=== PATIENT | female | born 1950 | race Two or more races ===

== ENCOUNTER 2021-02-06 19:04 | Inpatient (IN) | payer MEDICARE, MEDICAID ==
[~2021-02-06] VITALS: Ht 154.9 cm; Wt 93.0 kg
[2021-02-06 19:46] LABS: Basophils # (auto) 0.1 10 ^3/uL (0-0.2); Basophils % (auto) 0.6 % (0.0-2.0); Eosinophils # (auto) 0.2 10 ^3/uL (0-0.8); Eosinophils % (auto) 2.6 % (0.0-7.0); Hematocrit 47.9 % (36.0-46.0); Hemoglobin 16.2 g/dL (12.2-16.2); Lymphocytes # (auto) 2.5 10 ^3/uL (0.4-5.4); Lymphocytes % (auto) 28.6 % (10.0-50.0); Mean Corpuscular Hemoglobin 30.8 pg (28.0-32.0); Mean Corpuscular Hgb Conc. 33.8 g/dL (32.0-36.0); Mean Corpuscular Volume 91.1 fL (80.0-100.0); Monocytes # (auto) 0.7 10 ^3/uL (0-1.3); Monocytes % (auto) 8.2 % (0.0-12.0); Neutrophils # (auto) 5.3 10 ^3/uL (1.6-8.6); Nucleated Red Blood Cells % 0.1 %; Red Blood Cells 5.25 10^6/uL (4.0-5.20); Red Cell Distribution Width 12.8 % (11.8-14.3); White Blood Cell 8.9 10^3/uL (4.4-10.8)
[2021-02-06 20:05] LABS: INR 1.04 (0.9-1.15); Partial Thromboplastin Time 26.8 sec (23.6-33.0)
[2021-02-06 20:14] LABS: Albumin 3.9 g/dL (3.4-5.0); Calcium 9.2 mg/dL (8.5-10.1); Magnesium 2.2 mg/dL (1.6-2.6); Potassium 3.8 mmol/L (3.5-5.1)
[2021-02-06 20:18] LABS: Bilirubin, Total 0.5 mg/dL (0.2-1.0); Total Protein 8.4 g/dL (6.4-8.2)
[2021-02-06] MEDS ORDERED: ASPirin 325 MG TAB PO ONE (20:45)
[2021-02-06 21:30] LABS: Urine Bacteria FEW /hpf (None Seen); Urine Blood Negative /uL (Negative); Urine Specific Gravity 1.003 (1.001-1.035); Urine WBC 1 /hpf (0 - 5)
[2021-02-06] MEDS: ENOXAPARIN SOD 40 MG/0.4 ML SYRINGE SC SCH (22:30)
[2021-02-06] MEDS ORDERED: ONDANSETRON HCL 4 MG/2 ML VIAL IV PRN (22:30)
[2021-02-06] MEDS ORDERED: ACETAMINOPHEN 325 MG TAB PO PRN (22:30)
[2021-02-06] MEDS ORDERED: cloNIDine HCL 0.1 MG TAB PO PRN (22:30)
[2021-02-06] MEDS ORDERED: ATORVASTATIN 20 MG TAB PO ONE (22:30)
[2021-02-07 00:58] VITALS: BP 148/106
[2021-02-07] MEDS ORDERED: PNEUMOCOCCAL VACC POLYS 25 MCG/0.5 ML VIAL IM ONE (02:30)
[2021-02-07] MEDS ORDERED: INFLUENZA QUAD 2021-2022 0.5 ML SYRG IM ONE (02:30)
[2021-02-07 05:30] VITALS: BP_SYST 115; BP_SYST 156; BP_DIAS 79; BP_DIAS 98
[2021-02-07] MEDS ORDERED: CHOL20007 PO (06:56)
[2021-02-07] MEDS ORDERED: MAGN400T40 PO (06:56)
[2021-02-07 07:20] LABS: Basophils # (auto) 0 10 ^3/uL (0-0.2); Basophils % (auto) 0.5 % (0.0-2.0); Eosinophils # (auto) 0.3 10 ^3/uL (0-0.8); Eosinophils % (auto) 4.1 % (0.0-7.0); Hematocrit 42.7 % (36.0-46.0); Hemoglobin 15.1 g/dL (12.2-16.2); Lymphocytes % (auto) 36.7 % (10.0-50.0); Mean Corpuscular Hgb Conc. 35.3 g/dL (32.0-36.0); Mean Corpuscular Volume 90.8 fL (80.0-100.0); Monocytes # (auto) 0.9 10 ^3/uL (0-1.3); Monocytes % (auto) 11.3 % (0.0-12.0); Neutrophils # (auto) 3.9 10 ^3/uL (1.6-8.6); Neutrophils % (auto) 47.4 % (37.0-80.0); Nucleated Red Blood Cells % 0.3 %; Red Cell Distribution Width 12.9 % (11.8-14.3); White Blood Cell 8.1 10^3/uL (4.4-10.8)
[2021-02-07 07:40] LABS: Calcium 8.8 mg/dL (8.5-10.1); Potassium 4.3 mmol/L (3.5-5.1)
[2021-02-07 07:44] LABS: BUN/Creatinine Ratio 16.3
[2021-02-07 09:00] VITALS: BP 144/86
[2021-02-07] MEDS ORDERED: ASPirin 81 mg TAB PO SCH (10:00)
[2021-02-07] MEDS: HYDROcodone-ACET 5/325MG TAB PO PRN (10:25)
[2021-02-07] MEDS: amLODIPine BESYLATE 5 MG TAB PO SCH (10:26)
[2021-02-07] MEDS: PANTOPRAZOLE 40 MG TAB PO SCH (10:26)
[2021-02-07] MEDS: ENOXAPARIN SOD 40 MG/0.4 ML SYRINGE SC SCH (10:27)
[2021-02-07 13:00] VITALS: BP 139/81
[2021-02-07 16:54] VITALS: BP 121/69
[2021-02-07 22:00] VITALS: BP 120/77
[2021-02-07] MEDS: TEMAZEPAM 15 MG CAP PO PRN (22:14)
[2021-02-07] MEDS: ATORVASTATIN 20 MG TAB PO SCH (22:14)
[2021-02-08 05:00] VITALS: BP 106/74
[2021-02-08 06:25] LABS: Cholesterol 109 mg/dL (< 200); HDL Cholesterol 50 mg/dL (40-59); LDL Cholesterol 41 mg/dL (< 100); Triglycerides 104 mg/dL (< 150)
[2021-02-08 09:00] VITALS: BP 101/66
[2021-02-08] MEDS: amLODIPine BESYLATE 5 MG TAB PO SCH (09:19)
[2021-02-08] MEDS: ASPirin 81 mg TAB PO SCH (09:19)
[2021-02-08] MEDS: ENOXAPARIN SOD 40 MG/0.4 ML SYRINGE SC SCH (09:20)
[2021-02-08] MEDS: HYDROcodone-ACET 5/325MG TAB PO PRN ×2 (09:20→18:03)
[2021-02-08] MEDS: PANTOPRAZOLE 40 MG TAB PO SCH (09:20)
[2021-02-08] MEDS ORDERED: AML5T PO (11:06)
[2021-02-08] MEDS ORDERED: ASPI-378 PO (11:06)
[2021-02-08 13:00] VITALS: BP 113/71
[2021-02-08 17:00] VITALS: BP 102/59
[2021-02-08] MEDS: ATORVASTATIN 20 MG TAB PO SCH (21:06)
[2021-02-08] MEDS: TEMAZEPAM 15 MG CAP PO PRN (21:06)
[2021-02-08 22:00] VITALS: BP 132/81
[2021-02-09 05:00] VITALS: BP 86/50
[2021-02-09 09:00] VITALS: BP 101/64
[2021-02-09] MEDS: ASPirin 81 mg TAB PO SCH (09:59)
[2021-02-09] MEDS: amLODIPine BESYLATE 5 MG TAB PO SCH (10:00)
[2021-02-09] MEDS: PANTOPRAZOLE 40 MG TAB PO SCH (10:00)
[2021-02-09] MEDS: ENOXAPARIN SOD 40 MG/0.4 ML SYRINGE SC SCH (10:00)
[2021-02-09 11:06] VITALS: BP 101/64
[2021-02-09] MEDS ORDERED: INFLUENZA QUAD 2021-2022 0.5 ML SYRG IM ONE (11:35)
[2021-02-09 13:00] VITALS: BP 99/64
== END 2021-02-09 14:08 | disposition home or self-care (01) | DRG 47 ==
LOC: ER 19:06 → OVERFLOW 22:30 → WEST WING 23:39
PROVIDERS: ADMIT Nurse Practitioner; ATTEND Internal Medicine
DX: G45.9 Transient cerebral ischemic attack, unspecified (principal); E66.9 Obesity, unspecified; I10 Essential (primary) hypertension; E78.5 Hyperlipidemia, unspecified; F32.A Depression, unspecified; F41.9 Anxiety disorder, unspecified; Z20.822 Contact with and (suspected) exposure to COVID-19; F45.9 Somatoform disorder, unspecified; F17.210 Nicotine dependence, cigarettes, uncomplicated; F20.9 Schizophrenia, unspecified; Z82.3 Family history of stroke; Z82.49 Family history of ischemic heart disease and other diseases of the circulatory system; Z83.3 Family history of diabetes mellitus; Z71.6 Tobacco abuse counseling; Z68.34 Body mass index [BMI] 34.0-34.9, adult
CPT/HCPCS: 36415; 70450; 70551; 71045; 80048; 80053; 80061; 81001; 82306; 82962; 83735; 83880; 84443; 84484; 85025; 85610; 85730; 87426; 90686; 93005; 93306; 93886; 97163; G0378

== ENCOUNTER → 2021-11-26 | Outpatient (CLI) | payer MEDICARE, MEDICAID ==
[~2021-11-26] MED LIST: AML5T PO; CHOL20007 PO; MAGN400T40 PO
[2021-11-26 10:26] LABS: Basophils # (auto) 0 10 ^3/uL (0-0.2); Basophils % (auto) 0.3 % (0.0-2.0); Eosinophils # (auto) 0 10 ^3/uL (0-0.8); Eosinophils % (auto) 0.1 % (0.0-7.0); Hematocrit 45.2 % (36.0-46.0); Hemoglobin 15.3 g/dL (12.2-16.2); Lymphocytes # (auto) 1.5 10 ^3/uL (0.4-5.4); Lymphocytes % (auto) 19.6 % (10.0-50.0); Mean Corpuscular Hemoglobin 30.3 pg (28.0-32.0); Mean Corpuscular Hgb Conc. 33.8 g/dL (32.0-36.0); Mean Corpuscular Volume 89.6 fL (80.0-100.0); Monocytes # (auto) 0.9 10 ^3/uL (0-1.3); Monocytes % (auto) 11.4 % (0.0-12.0); Neutrophils # (auto) 5.3 10 ^3/uL (1.6-8.6); Neutrophils % (auto) 68.6 % (37.0-80.0); Nucleated Red Blood Cells % 0.1 %; Red Blood Cells 5.05 10^6/uL (4.0-5.20); Red Cell Distribution Width 12.9 % (11.8-14.3); White Blood Cell 7.7 10^3/uL (4.4-10.8)
[2021-11-26 10:53] LABS: Albumin 3.7 g/dL (3.4-5.0); Calcium 9.4 mg/dL (8.5-10.1)
[2021-11-26 11:03] LABS: BUN/Creatinine Ratio 14.5; Bilirubin, Total 1.2 mg/dL (0.2-1.0); Potassium 3.7 mmol/L (3.5-5.1); Total Protein 8.2 g/dL (6.4-8.2)
== END | disposition home or self-care (01) ==
LOC: LAB 09:50
PROVIDERS: ATTEND Nurse Practitioner Family
DX: Z00.00 Encounter for general adult medical examination without abnormal findings (principal); F41.1 Generalized anxiety disorder; I10 Essential (primary) hypertension; Z79.899 Other long term (current) drug therapy
CPT/HCPCS: 36415; 80053; 80061; 82306; 84443; 85025